=== PATIENT | male | born 1980 | race Caucasian/White ===

== ENCOUNTER 2019-07-14 21:27 | Emergency (ER) | payer OTHER ==
[2019-07-14 22:07] VITALS: BP 132/87; PULSE 89; O2SAT 98
[2019-07-14] MEDS ORDERED: PERCOCET TABLET 5/325MG PO STA (22:49)
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
[2019-07-14] MEDS ORDERED: PERCOCET TABLET 5/325MG ONE (23:00)
== END 2019-07-14 23:25 | disposition home or self-care (01) ==
LOC: EDBD 21:27 → ED 21:27
DX: M25.551 Pain in right hip (principal); M79.604 Pain in right leg; R26.9 Unspecified abnormalities of gait and mobility; I10 Essential (primary) hypertension; Z79.899 Other long term (current) drug therapy; F31.9 Bipolar disorder, unspecified
CPT/HCPCS: 99283; A9270-GY

== ENCOUNTER 2019-07-31 12:58 | Emergency (ER) | payer MEDICAID, OTHER ==
--- NOTE | 2019-07-31 13:09 | ERPHSYRPT ---
- History of Present Illness Time Seen by Provider: 07/31/19 13:09 Source: patient Exam Limitations: no limitations Physician History: 39 y/o right handed white male presents with left wrist pain. no acute injury. pt went to bed last pm fine and woke up this am with left wrist pain. never had before. Occurred: this morning Method of Injury: other (no acute injury) Quality: aching Severity of Pain-Max: mild Severity of Pain-Current: mild Modifying Factors: Improves With: movement Associated Symptoms: none Allergies/Adverse Reactions: hydrocodone [From Vicoprofen] Allergy (Verified 07/31/19 13:12) ibuprofen [From Vicoprofen] Allergy (Verified 07/31/19 13:12) Home Medications: Alprazolam [Xanax] 0.25 mg PO TID 07/14/19 [History] Fluoxetine HCl [Prozac] 40 mg PO DAILY 07/14/19 [History] Gabapentin 800 mg PO TID 07/14/19 [History] Hx Tetanus, Diphtheria Vaccination/Date Given: Yes Hx Influenza Vaccination/Date Given: No Hx Pneumococcal Vaccination/Date Given: No - Review of Systems Constitutional: No Symptoms Eyes: No Symptoms Ears, Nose, & Throat: No Symptoms Respiratory: No Symptoms Cardiac: No Symptoms Abdominal/Gastrointestinal: No Symptoms Genitourinary Symptoms: No Symptoms Musculoskeletal: Joint Pain (left wrist) Skin: No Symptoms Neurological: No Symptoms Psychological: No Symptoms Endocrine: No Symptoms Hematologic/Lymphatic: No Symptoms Immunological/Allergic: No Symptoms All Other Systems: Reviewed and Negative - Past Medical History Pertinent Past Medical History: Yes Neurological History: No Pertinent History ENT History: No Pertinent History Cardiac History: Other Respiratory History: No Pertinent History Endocrine Medical History: No Pertinent History Musculoskeletal History: Fractures GI Medical History: No Pertinent History History: No Pertinent History Psycho-Social History: Bipolar, Other Other Medical History: murmur - Past Surgical History Past Surgical History: Yes Neuro Surgical History: No Pertinent History Cardiac: No Pertinent History Respiratory: No Pertinent History Gastrointestinal: No Pertinent History Genitourinary: No Pertinent History Musculoskeletal: Orthopedic Surgery Male Surgical History: No Pertinent History Other Surgical History: spinal fusion, lumbar L5-S5, neck surgery - Social History Smoking Status: Former smoker Exposure to second hand smoke: No Drug Use: none Patient Lives Alone: No - Nursing Vital Signs Nursing Vital Signs: Initial Vital Signs Temperature 97.7 F 07/31/19 13:04 Pulse Rate 64 07/31/19 13:04 Blood Pressure 121/79 07/31/19 13:04 O2 Sat by Pulse Oximetry 100 07/31/19 13:04 Pain Scale Pain Intensity 8 - Physical Exam General Appearance: no apparent distress, alert, anxiety Eyes, Ears, Nose, Throat Exam: normal ENT inspection, moist mucous membranes Neck Exam: normal inspection, non-tender, supple, full range of motion Cardiovascular/Respiratory Exam: chest non-tender Abdominal Exam: non-tender Back Exam: normal inspection, normal range of motion, No CVA tenderness Shoulder Exam: normal inspection, non-tender, no evidence of injury, normal ROM Elbow/Forearm Exam: normal inspection, non-tender, no evidence of injury, normal ROM Wrist Exam: normal inspection, no evidence of injury, normal ROM, soft tissue tenderness Hand Exam: normal inspection, non-tender, no evidence of injury, normal ROM Neuro/Tendon Exam: normal sensation, normal motor functions, normal tendon functions Mental Status Exam: alert, oriented x 3, cooperative Skin Exam: normal color, warm, dry SpO2 Interpretation: normal O2 Delivery: Room Air - Course Nursing assessment & vital signs reviewed: Yes - Progress Progress: unchanged Counseled pt/family regarding: diagnosis, need for follow-up - Departure Departure Disposition: Home Clinical Impression: Wrist pain, left Condition: Stable Critical Care Time: No Referrals: DOCTOR,NO FAMILY [Primary Care Provider] - Additional Instructions: follow up with [facility] clinic Saturday08/03/19 between 8am and noon for further management Prescriptions: Prednisone 10 mg [Deltasone 10 mg] 10 mg PO TID #12 tablet
[2019-07-31 13:12] VITALS: BP 121/79; PULSE 64; O2SAT 100
== END 2019-07-31 13:48 | disposition home or self-care (01) ==
LOC: ED 12:58
DX: M25.532 Pain in left wrist (principal)
CPT/HCPCS: 99283; L3908

== ENCOUNTER 2019-08-25 19:30 | Emergency (ER) | payer MEDICAID ==
[2019-08-25 19:45] VITALS: BP 129/79; PULSE 80; O2SAT 97
--- NOTE | 2019-08-25 19:50 | ERPHSYRPT ---
- History of Present Illness Time Seen by Provider: 08/25/19 19:40 Source: patient, family Patient Subjective Stated Complaint: pt states for the last three days he has noticed a lump on his head on the right side that he does not recall ever hitting head but states that is is very sore. Triage Nursing Assessment: pt is alert and oriented, states that he has pain 7/ 10 on r side of head. ther is a raised lump palpated on r side of scalp that is 2 cm in size. Physician History: patient presents with a complaint of a painful nodular area on the right side of his head that has been there for approximately 3 days. There is no known injury and it is getting bigger. Timing/Duration: day(s) (3) Quality: painful Severity: mild Location: scalp Possible Causes: no cause identified Allergies/Adverse Reactions: hydrocodone [From Vicoprofen] Allergy (Verified 07/31/19 13:12) ibuprofen [From Vicoprofen] Allergy (Verified 07/31/19 13:12) Home Medications: Alprazolam [Xanax] 0.25 mg PO TID 07/14/19 [History] Fluoxetine HCl [Prozac] 40 mg PO DAILY 07/14/19 [History] Gabapentin 800 mg PO TID 07/14/19 [History] Hx Tetanus, Diphtheria Vaccination/Date Given: Yes Hx Influenza Vaccination/Date Given: No Hx Pneumococcal Vaccination/Date Given: No - Review of Systems Constitutional: No Fever, No Chills Eyes: No Symptoms Ears, Nose, & Throat: No Symptoms Respiratory: No Cough, No Dyspnea Cardiac: No Chest Pain, No Edema, No Syncope Abdominal/Gastrointestinal: No Abdominal Pain, No Nausea, No Vomiting, No Diarrhea Genitourinary Symptoms: No Dysuria Musculoskeletal: No Back Pain, No Neck Pain Skin: Skin Lesions, No Rash Neurological: No Dizziness, No Focal Weakness, No Sensory Changes Psychological: No Symptoms Endocrine: No Symptoms All Other Systems: Reviewed and Negative - Past Medical History Pertinent Past Medical History: Yes Neurological History: No Pertinent History ENT History: No Pertinent History Cardiac History: Other Respiratory History: No Pertinent History Endocrine Medical History: No Pertinent History Musculoskeletal History: Fractures GI Medical History: No Pertinent History History: No Pertinent History Psycho-Social History: Bipolar, Other Other Medical History: murmur - Past Surgical History Past Surgical History: Yes Neuro Surgical History: No Pertinent History Cardiac: No Pertinent History Respiratory: No Pertinent History Gastrointestinal: No Pertinent History Genitourinary: No Pertinent History Musculoskeletal: Orthopedic Surgery Male Surgical History: No Pertinent History Other Surgical History: spinal fusion, lumbar L5-S5, neck surgery - Social History Smoking Status: Former smoker Exposure to second hand smoke: No Drug Use: none Patient Lives Alone: No - Nursing Vital Signs Nursing Vital Signs: Initial Vital Signs Temperature 98.7 F 08/25/19 19:36 Pulse Rate 80 08/25/19 19:36 Respiratory Rate 18 08/25/19 19:36 Blood Pressure 129/79 08/25/19 19:36 O2 Sat by Pulse Oximetry 97 08/25/19 19:36 Pain Scale Pain Intensity 7 - Physical Exam General Appearance: no apparent distress, alert Eye Exam: PERRL/EOMI, eyes nml inspection Ears, Nose, Throat Exam: normal ENT inspection, pharynx normal, moist mucous membranes Neck Exam: normal inspection, non-tender, supple, full range of motion Respiratory Exam: normal breath sounds, lungs clear, No respiratory distress Cardiovascular Exam: regular rate/rhythm, normal heart sounds Gastrointestinal/Abdomen Exam: soft, mass, No tenderness Back Exam: normal inspection, normal range of motion, No CVA tenderness, No vertebral tenderness Extremity Exam: normal inspection, normal range of motion Neurologic Exam: alert, oriented x 3, cooperative, normal mood/affect, sensation nml, No motor deficits Skin Exam: normal color, warm, dry, other SpO2 Interpretation: normal SpO2: 97 O2 Delivery: Room Air - Course Nursing assessment & vital signs reviewed: Yes - Progress Progress: unchanged - Departure Departure Disposition: Home Clinical Impression: Cyst of subcutaneous tissue Condition: Stable Critical Care Time: No Referrals: DOCTOR,NO FAMILY [Primary Care Provider] - Instructions: Epidermal Cyst Prescriptions: Clindamycin HCl [Cleocin HCl] 300 mg PO TID 7 Days #21 capsule
== END 2019-08-25 20:20 | disposition home or self-care (01) ==
LOC: ED 19:30
DX: L72.8 Other follicular cysts of the skin and subcutaneous tissue (principal)
CPT/HCPCS: 99283